=== PATIENT | female | born 1950 | race Caucasian/White ===

== ENCOUNTER 2017-11-17 02:46 | Observation (INO) | payer MEDICARE ==
[2017-11-17 03:24] LABS: #Eosinphils 0.3 thou/uL (0.0-0.7); #Lymphocytes 2.6 thou/uL (1.20-3.40); #Monocytes 0.5 thou/uL (0.11-0.59); #Neutrophils 3.6 thou/uL (1.40-6.50); %Basophils 0.5 % (0.0-1.0); %Eosinophils 4.5 % (0.0-10.0); %Lymphocytes 36.8 % (21.0-51.0); %Monocytes 7.3 % (0.0-10.0); %Neutrophils 50.9 % (42.0-75.0); Hemoglobin 14.4 g/dL (12.0-16.0); Mean Corpuscular Hemoglobin 33.2 pg (27.0-31.0); Mean Corpuscular Volume 94.8 fl (81.0-99.0); Mean Platelet Volume 7.8 fL (7.4-10.4); Platelet Count 207 thou/uL (130-400); RBC Distribution Width 11.1 % (11.5-14.5); Red Blood Cell (RBC) Count 4.35 mill/uL (4.20-5.40); White Blood Cell (WBC) Count 7.1 thou/uL (4.8-10.8)
[2017-11-17 03:44] LABS: ALT (SGPT) 13 U/L (8-55); AST (SGOT) 15 U/L (5-34); Albumin 4.4 g/dL (3.4-4.8); Alkaline Phosphatase 71 U/L (40-150); Anion Gap 11 mmol/L (10-20); BUN (Urea Nitrogen) 25 mg/dL (9.8-20.1); Bilirubin, Total 0.4 mg/dL (0.2-1.2); Calc. Creatinine Clearance 0 mL/min (70-130); Calcium 9.3 mg/dL (7.8-10.44); Carbon Dioxide 24 mmol/L (23-31); Chloride 109 mmol/L (98-107); Estimated GFR-MDRD 87; Globulin 2.5 g/dL (2.4-3.5); Glucose 110 mg/dL (80-115); Potassium 3.4 mmol/L (3.5-5.1); Protein, Total 6.9 g/dL (6.0-8.3); Sodium 141 mmol/L (136-145)
[2017-11-17 03:46] LABS: CKMB 1.7 ng/mL (0-6.6); Troponin I Less than 0.010 ng/mL (< 0.028)
[2017-11-17] MEDS ORDERED: Ondansetron ODT 4 MG TAB SL PRN (05:46)
[2017-11-17] MEDS ORDERED: Acetaminophen 325 MG TAB PO PRN (05:46)
[2017-11-17] MEDS ORDERED: Ondansetron HCl/PF 4 MG/2 ML Vial IVP PRN (05:46)
[2017-11-17 06:02] VITALS: BMI 29.0
[2017-11-17 07:30] LABS: Troponin I Less than 0.010 ng/mL (< 0.028)
--- NOTE | 2017-11-17 07:44 | RAD ---
SINGLE VIEW OF THE CHEST: COMPARISON: None. HISTORY: Tachycardia and chest pain. FINDINGS: Single view of the chest shows a normal sized cardiomediastinal silhouette. There is no evidence of c onsolidation, mass, or pleural effusion. The bones are unremarkable. IMPRESSION: No evidence of acute cardiopulmonary disease. POS: [facility]
[2017-11-17 07:54] VITALS: BP 155/77; TEMP 98.3
[2017-11-17] MEDS ORDERED: Aspirin 325 mg Enteric Coated Tablet PO SCH (09:00)
[2017-11-17 10:07] LABS: Troponin I Less than 0.010 ng/mL (< 0.028)
--- NOTE | 2017-11-17 11:05 | SS ---
DATE OF ADMISSION: 11/17/2017 PRIMARY CARE PHYSICIAN: Dr. Maria Del Rosario Rose with [facility], [facility]. CHIEF COMPLAINT: Fast heartbeat. HISTORY OF PRESENT ILLNESS: This is a 67-year-old female who resides in [facility], who presented to [facility] Emergency Department complaining of rapid heartbeat. Th e patient states she noticed heartbeat, which woke her up at approximately 2:00 a.m., noting on her F itbit watch that her pulse was in the 120s. The patient states she was attempting to go to sleep whe n she noticed her heart rate racing, but denied any associated shortness of breath, jaw or left arm d iscomfort. The patient denied any specific chest pain and states she has no personal history of robbi nary artery disease or strong family history of coronary artery disease. The patient states she unde rwent cardiac scan within the last year which was negative. The patient admits that she remains acti ve, exercising on a regular basis and taking no chronic medications except nabumetone for arthritis s ymptoms and over the counter supplements for cartilage health as well as Krill oil supplement. The p atient admits to assisting her son with a recent move over the last week with increased caffeine inta ke and decreased water intake. The patient denies any history of thyroid disorder or atrial fibrilla tion. The patient states she had some associated nausea when she noticed her heart rate increasing, but no vomiting or diarrhea. The patient denied any specific cold symptoms, but felt flushed. In e emergency department, the patient underwent general evaluation with EKG showing sinus tachycardia w ith heart rates in the low 100s. Screening metabolic survey was essentially negative and troponins h ave been negative x2. The patient received aspirin 324 mg and was referred to the observation unit. PAST MEDICAL HISTORY: 1. Arthritis. 2. Dyslipidemia. PAST SURGICAL HISTORY: 1. Status post left wrist repair. 2. Status post cholecystectomy. 3. Status post tonsillectomy. CURRENT MEDICATIONS: Nabumetone 750 mg 1 tab p.o. daily p.r.n. ALLERGIES: No known drug allergies. FAMILY HISTORY: Parents lived to their low 100s, now . SOCIAL HISTORY: The patient is , accompanied by her in the hospital. Resides near [place], [place]. No current tobacco or illicit drug use. Occasional alcohol use. REVIEW OF SYSTEMS: The following complete review of systems was negative, unless otherwise mentioned in the HPI or below: Constitutional: Weight loss or gain, ability to conduct usual activities. Skin: Rash, itching. Eyes: Double vision, pain. ENT/Mouth: Nose bleeding, neck stiffness, pain, tenderness. Cardiovascular: Palpitations, dyspnea on exertion, orthopnea. Respiratory: Shortness of breath, wheezing, cough, hemoptysis, fever or night sweats. Gastrointestinal: Poor appetite, abdominal pain, heartburn, nausea, vomiting, constipation, or diarrhea. Genitourinary: Urgency, frequency, dysuria, nocturia. Musculoskeletal: Pain, swelling. Neurologic/Psychiatric: Anxiety, depression. Allergy/Immunologic: Skin rash, bleeding tendency. PHYSICAL EXAMINATION: VITAL SIGNS: Currently, blood pressure 155/77, pulse 89, respiratory rate 16, temperature 98.3 degre es Fahrenheit, O2 saturation 96% on room air. GENERAL APPEARANCE: This is a 67-year-old female, alert and oriented x3, pleasant, convers ant, in no acute distress. HEENT: Pupils are equal, round, and reactive to light and accommodation. Extraocular muscles are in tact. No scleral icterus, no conjunctival injection. Nares patent. OP is clear. Teeth in good rep air. NECK: Supple, no cervical adenopathy, no thyromegaly, no carotid bruits, no JVD appreciated. Cervic al spine with full active and passive range of motion. No meningeal signs appreciated. CHEST: Lungs are clear to auscultation bilaterally. CARDIOVASCULAR: S1 and S2 without noted murmur. ABDOMEN: Rounded, soft, nontender, nondistended. Bowel sounds are positive in all four quadrants. There is no hepatosplenomegaly, no abdominal bruits, no rebound or guarding appreciated. EXTREMITIES: Warm and dry with good turgor. No clubbing, cyanosis or asymmetric edema appreciated. Pulses palpable distally at the dorsalis pedis, posterior tibial, and popliteal arteries bilaterally . Capillary refill less than 2 seconds. NEUROLOGIC: Cranial nerves II-XII are grossly intact. No focal or lateralizing signs appreciated. PERTINENT LABORATORY AND X-RAY FINDINGS: Sodium 141, potassium 3.4, chloride 109, CO2 of 24, BUN 25, creatinine 0.68 with estimated GFR of 87, glucose 110, calcium 9.3. LFTs within normal limits. Tro ponin I negative x3. Albumin 4.4. TSH 2.36. CBC within normal limits. Portable chest x-ray dated 11/17/2017 showed no acute cardiopulmonary process. EKG dated 11/17/2017 by my interpretation shows a sinus tachycardia with heart rates in the low 100s. Normal R-wave progression noted in the precord ial leads. Left axis deviation. No acute ST-T wave changes appreciated. ASSESSMENT AND PLAN: 1. Sinus tachycardia, etiology unclear with extensive differential. Suspect related to mild dehydra tion in conjunction with increased caffeine intake. Metabolic workup was essentially unrevealing. C urrent recommendations are for increased fluid intake and limit exposure to nabumetone. No current e vidence to suggest underlying ischemic episode. 2. Elevated blood pressure. Suspect stress reaction. Recommend outpatient monitoring. 3. Osteoarthritis. Symptomatic and supportive measures. Limit nabumetone. Continue routine exerci se program. 4. Code status is FULL. DISPOSITION: Discharged home with follow up with primary care provider in [place], [place] within 7 days.
== END 2017-11-17 10:52 | disposition home or self-care (01) ==
LOC: ERS 02:46 → 2SW 04:10
PROVIDERS: ADMIT Internal Medicine; ATTEND Internal Medicine
DX: R00.0 Tachycardia, unspecified (principal); R03.0 Elevated blood-pressure reading, without diagnosis of hypertension; E78.5 Hyperlipidemia, unspecified; M19.90 Unspecified osteoarthritis, unspecified site; Z88.5 Allergy status to narcotic agent; Z90.49 Acquired absence of other specified parts of digestive tract; Z98.890 Other specified postprocedural states
CPT/HCPCS: 36415; 71045; 80053; 82553; 84443; 84484; 85025; 93005; A4216

== ENCOUNTER 2018-03-11 05:30 | Observation (INO) | payer MEDICARE ==
[2018-03-11 06:01] LABS: #Basophils 0.1 thou/uL (0.0-0.2); #Eosinphils 0.2 thou/uL (0.0-0.7); #Lymphocytes 1.8 thou/uL (1.20-3.40); #Monocytes 0.5 thou/uL (0.11-0.59); #Neutrophils 9.8 thou/uL (1.40-6.50); %Basophils 0.5 % (0.0-1.0); %Eosinophils 1.6 % (0.0-10.0); %Lymphocytes 14.4 % (21.0-51.0); %Monocytes 3.8 % (0.0-10.0); %Neutrophils 79.8 % (42.0-75.0); Hemoglobin 15.2 g/dL (12.0-16.0); Mean Corpuscular HGB CONC 35.4 g/dL (32.0-36.0); Mean Corpuscular Hemoglobin 32.9 pg (27.0-31.0); Mean Platelet Volume 7.4 fL (7.4-10.4); Platelet Count 225 thou/uL (130-400); RBC Distribution Width 11.2 % (11.5-14.5); Red Blood Cell (RBC) Count 4.62 mill/uL (4.20-5.40); White Blood Cell (WBC) Count 12.3 thou/uL (4.8-10.8)
[2018-03-11 06:22] LABS: CKMB 1.5 ng/mL (0-6.6); Troponin I Less than 0.010 ng/mL (< 0.028)
[2018-03-11 06:24] LABS: ALT (SGPT) 15 U/L (8-55); AST (SGOT) 18 U/L (5-34); Albumin 4.6 g/dL (3.4-4.8); Alkaline Phosphatase 72 U/L (40-150); Anion Gap 15 mmol/L (10-20); BUN (Urea Nitrogen) 18 mg/dL (9.8-20.1); Bilirubin, Total 1.4 mg/dL (0.2-1.2); CK (CPK) 64 U/L (29-168); Calc. Creatinine Clearance 0 mL/min (70-130); Calcium 9.2 mg/dL (7.8-10.44); Carbon Dioxide 19 mmol/L (23-31); Chloride 109 mmol/L (98-107); Estimated GFR-MDRD Greater than 90; Globulin 2.5 g/dL (2.4-3.5); Glucose 117 mg/dL (80-115); Potassium 3.3 mmol/L (3.5-5.1); Protein, Total 7.1 g/dL (6.0-8.3); Sodium 140 mmol/L (136-145)
[2018-03-11] MEDS ORDERED: Acetaminophen 325 MG TAB PO PRN ×3 (07:19→08:31)
[2018-03-11] MEDS ORDERED: Ondansetron ODT 4 MG TAB SL PRN (07:19)
[2018-03-11] MEDS ORDERED: Ondansetron HCl/PF 4 MG/2 ML Vial IVP PRN ×2 (07:19→08:31)
[2018-03-11] MEDS ORDERED: Nitroglycerin 2% Ointment 1 INCH/1 GM Packet ONE (07:38)
[2018-03-11] MEDS ORDERED: Loratadine 10 MG TAB PO PRN (08:31)
[2018-03-11] MEDS ORDERED: Diabetic Tussin 200 MG/10 ML UDCUP PO PRN (08:31)
[2018-03-11] MEDS ORDERED: Calcium Carbonate 500 MG ChewTAB PO PRN (08:31)
[2018-03-11] MEDS ORDERED: cloNIDine 0.1 MG TAB PO PRN (08:31)
[2018-03-11] MEDS ORDERED: Senokot 8.6 MG TAB PO PRN ×2 (08:31)
[2018-03-11] MEDS ORDERED: Benzonatate 100 MG CAP PO PRN (08:31)
[2018-03-11] MEDS ORDERED: hydrALAZINE 20 MG/ML VIAL SLOW IVP PRN (08:31)
[2018-03-11] MEDS ORDERED: Bisacodyl 5 MG TAB PO PRN ×2 (08:31)
[2018-03-11] MEDS ORDERED: Mag-Al 1200 mg/1200 mg/30 ML UDCUP PO PRN (08:31)
[2018-03-11] MEDS ORDERED: Nitroglycerin 0.4 MG TAB (25 Tab Bottle) SL PRN (08:31)
--- NOTE | 2018-03-11 09:55 | RAD ---
PORTABLE CHEST: Date: 03/11/18 HISTORY: Heart palpitations and chest pain. COMPARISON: 11/17/17. FINDINGS: Heart size is within normal limits for portable technique. Mediastinal structures are unremarkable. T he lungs are clear of infiltrates. IMPRESSION: No active intrathoracic disease. POS: [facility]
[2018-03-11 10:21] LABS: Troponin I Less than 0.010 ng/mL (< 0.028)
[2018-03-11] MEDS ORDERED: Nitroglycerin 2% Ointment 1 INCH/1 GM Packet TOP PRN (10:48)
[2018-03-11 10:59] VITALS: BMI 28.1
--- NOTE | 2018-03-11 12:49 | HP ---
DATE OF ADMISSION: 03/11/2018 PRIMARY CARE PHYSICIAN: Out of town in [place]. CHIEF COMPLAINT: Palpitations and sweating and chest tightness. HISTORY OF PRESENT ILLNESS: Ms. Troncoso is a very pleasant 67-year-old female with past medical his tory of osteoarthritis and paroxysmal hypertension, who presented to the emergency room with above-me ntioned complaints. History is mainly obtained by the patient herself and case has been discussed wi th admitting ER physician. Ms. Troncoso reports that she lives in [place] and travels locally to visit her son. They came h ere the day before yesterday. She has a history of palpitations and faster heart rate for which she was admitted to our facility in October. At that time, no arrhythmia was noticed and she was admitt ed after overnight observation. She has sought attention with her primary care physician in [facility] and was told to go follow up with the rn correctional, which she has not been able to do so. Last night while she was here at her son's house, she started to have symptoms again. Her symptoms m ainly consist of feeling palpitations and when she checked her heart rate on her Fitbit, it read as h igh as 100 teens. These episodes are associated with some chest discomfort and mild shortness of tru ath and sensation of flushing. She denies any significant chest pain or arm or jaw claudication. Sh e denies any recent illnesses. She may get a little bit dizzy with that, but is not sure. She denie s any prior history of any thyroid issues or hormonal imbalances. She is currently not on any signif icant medications except for over the counter multivitamins and a baby aspirin. In the emergency room upon presentation, her heart rate was 88, but her blood pressure was elevated t o 178/95. She reported that she always has had good blood pressure, but lately she has been noticing that her blood pressure would be high on occasions. Her doctor took her off of nabumetone that she has been taking for multiple years, thinking that might help with her blood pressure. In the emergency room, her workup consisted of a 12-lead EKG, which showed normal sinus rhythm at 87 beats per minute. She was given 325 mg of aspirin and half an inch of nitro paste transdermal. Her blood work was rather unremarkable. D-dimer was less than 0.27. Cardiac enzymes normal x2. She is now being admitted for further evaluation and risk stratification as her cardiac index is at least __ ___(00:00). She has never had any cardiac workup done in the past. PAST MEDICAL HISTORY: 1. Dyslipidemia. 2. Arthritis. PAST SURGICAL HISTORY: 1. Left wrist repair. 2. Cholecystectomy. 3. Tonsillectomy. CURRENT MEDICATIONS: Aspirin 81 mg daily, multivitamin daily, omega-3 fish oil daily. Vitamin D 100 0 units daily. ALLERGIES: CODEINE. SOCIAL HISTORY: She is and lives in [place] with her . No history of drug, tobac co or alcohol abuse. FAMILY HISTORY: No significant family history of premature coronary artery disease, stroke or cancer . Reviewed with the patient. REVIEW OF SYSTEMS: A 12-point review of systems was done and is negative except for those mentioned in the history and physical. Constitutional: Weight loss or gain, ability to conduct usual activities. Skin: Rash, itching. Eyes: Double vision, pain. ENT/Mouth: Nose bleeding, neck stiffness, pain, tenderness. Cardiovascular: Palpitations, dyspnea on exertion, orthopnea. Respiratory: Shortness of breath, wheezing, cough, hemoptysis, fever or night sweats. Gastrointestinal: Poor appetite, abdominal pain, heartburn, nausea, vomiting, constipation, or diarrhea. Genitourinary: Urgency, frequency, dysuria, nocturia. Musculoskeletal: Pain, swelling. Neurologic/Psychiatric: Anxiety, depression. Allergy/Immunologic: Skin rash, bleeding tendency. LABORATORY DATA: Her CBC shows WBCs of 12.3 with 79% neutrophils. D-dimer is less than 0.27. Serum chemistry show potassium of 3.3, chloride 109, bicarbonate 19, total bilirubin 1.4 with normal liver enzymes. CK-MB normal at 1.5, troponin less than 0.010 x2. Chest x-ray by my review has no evidenc e to suggest pleural effusion, edema or infiltrate. Twelve-lead EKG by my review shows normal sinus rhythm without any acute ST or T-wave changes. PHYSICAL EXAMINATION: VITAL SIGNS: Most recent include temperature 98.3, pulse of 85, respirations 18, saturating 98% on r oom air, blood pressure 125/74. GENERAL: No acute distress. Awake, alert, oriented x3, very pleasant. HEENT: Mucous membrane is moist and pink. No oropharyngeal exudate or erythema. Head is normocepha lic, atraumatic. Pupils equal, reactive to light and accommodation. Extraocular movement intact. NECK: Supple without any lymphadenopathy, JVD or bruit. CHEST: Clear to auscultation without any wheezing, rales or rhonchi. CARDIOVASCULAR: Rate and rhythm is regular without any murmur, rubs or gallops. ABDOMEN: Soft, nontender, nondistended, positive bowel sounds. EXTREMITIES: Free of any cyanosis, clubbing, or edema. NEUROLOGIC: Nonfocal. SKIN: Free of any rashes or bruises. Feels warm and dry to touch. IMPRESSION AND PLAN: 1. Palpitations and chest discomfort. It is unknown whether the patient has been having some paroxy smal arrhythmia or not. She has not had any risk stratification done in the past. We will go ahead and order a stress test for her as well as echocardiogram to rule out any valvular dysfunction. She will be monitored on telemetry unit. We will also rule out alternative causes of sinus tachycardia. We will check her TSH and 24-hour urine metanephrines and catecholamines to rule out hormonal issues like pheochromocytoma given her symptoms of paroxysmal hypertension, palpitations and flushing. Lik elihood of the latter is less at this time, however. Continue her daily dose of baby aspirin. 2. Dyslipidemia. The patient will follow up with outpatient clinic with a primary care physician. 3. Deep venous thrombosis and gastrointestinal prophylaxis. DISPOSITION: Ms. Troncoso is currently being admitted under observation status for further workup of palpitation and cardiac risk stratification. Further management will depend upon her clinical cours e.
[2018-03-11] MEDS: Enoxaparin Sodium 40 MG/0.4 ML SYRINGE SC SCH ×2 (14:32→15:20)
--- NOTE | 2018-03-11 14:50 | NM ---
MYOCARDIAL PERFUSION SCAN WITH SPECT IMAGING: HISTORY: Chest pain. TECHNIQUE/FINDINGS: Examination is performed using 30 mCi 99m-technetium sestamibi on the stress and 9.1 on the resting i mages. This shows a normal distribution of radiopharmaceutical. No signs of ischemia or scar. WALL MOTION: There is symmetric contractility to the ventricle. LEFT VENTRICULAR EJECTION FRACTION: The calculated left ventricular ejection fraction is 62%. IMPRESSION: Unremarkable myocardial perfusion scan. POS: [facility]
[2018-03-11] MEDS ORDERED: Potassium Chloride 20 MEQ TAB PO SCH (15:15)
[2018-03-11] MEDS ORDERED: ADENOSINE 60 MG/20 ML VIAL ONE (15:28)
[2018-03-11 16:54] LABS: Bilirubin Negative (Negative); Blood, Urine Negative (Negative); Clarity CLEAR (Clear); Glucose, Urine (Dipstick) Negative (Negative); Leukocyte Negative (Negative); Nitrite Negative (Negative); Protein, Urine (Dipstick) 30 mg/dL (Neg-Trace); Specific Gravity, Urine 1.023 (1.002-1.036); Urobilinogen 0.2 mg/dL (0.2-1.0); pH, Urine 6.5 (5.0-9.0)
[2018-03-11 16:57] LABS: Bacteria/HPF None Seen HPF (None Seen); Hyaline Casts/LPF 4-6 HYALINE CAST LPF (0-3 Hyaline); Pathc Cast-AUWi Flag 0.58 (0-2.49); RBC/HPF 0-3 HPF (0-3); Squamous Epithelial 0-3 HPF (0-3); WBC/HPF 0-3 HPF (0-3)
[2018-03-12 05:14] LABS: #Eosinphils 0.3 thou/uL (0.0-0.7); #Lymphocytes 1.8 thou/uL (1.20-3.40); #Monocytes 0.5 thou/uL (0.11-0.59); #Neutrophils 4.3 thou/uL (1.40-6.50); %Basophils 0.5 % (0.0-1.0); %Eosinophils 3.8 % (0.0-10.0); %Lymphocytes 25.7 % (21.0-51.0); %Monocytes 7.1 % (0.0-10.0); %Neutrophils 62.9 % (42.0-75.0); Mean Corpuscular HGB CONC 33.8 g/dL (32.0-36.0); Mean Corpuscular Hemoglobin 31.5 pg (27.0-31.0); Mean Corpuscular Volume 93.2 fl (81.0-99.0); Mean Platelet Volume 7.5 fL (7.4-10.4); Platelet Count 210 thou/uL (130-400); RBC Distribution Width 11.2 % (11.5-14.5); Red Blood Cell (RBC) Count 4.44 mill/uL (4.20-5.40); White Blood Cell (WBC) Count 6.9 thou/uL (4.8-10.8)
[2018-03-12 06:08] LABS: Anion Gap 14 mmol/L (10-20); BUN (Urea Nitrogen) 15 mg/dL (9.8-20.1); Calc. Creatinine Clearance 97 mL/min (70-130); Carbon Dioxide 21 mmol/L (23-31); Chloride 109 mmol/L (98-107); Estimated GFR-MDRD 85; Glucose 143 mg/dL (80-115); Potassium 3.6 mmol/L (3.5-5.1); Sodium 140 mmol/L (136-145)
[2018-03-12] MEDS ORDERED: Multivitamin W/ Minerals 1 TAB PO SCH (09:00)
[2018-03-12] MEDS ORDERED: Lisinopril 5 MG TAB PO SCH (09:00)
[2018-03-12] MEDS ORDERED: Non-Formulary Item 1 EACH (Glucosam/Chondr-Msm1/D3/C/Mang [Glucosamine Chondroitin Comple PO SCH (09:00)
[2018-03-12] MEDS ORDERED: Fish Oil 1,000 MG CAP PO SCH (09:00)
[2018-03-12] MEDS: Enoxaparin Sodium 40 MG/0.4 ML SYRINGE SC SCH (09:31)
[2018-03-12 16:10] VITALS: BP 155/87; TEMP 98.4
--- NOTE | 2018-03-13 01:56 | DIS ---
DATE OF ADMISSION: 03/11/2018 DATE OF DISCHARGE: 03/12/2018 CONDITION AT THE TIME OF DISCHARGE: Stable and improved. DISCHARGE DIAGNOSES: 1. Palpitations and sinus tachycardia. 2. Hypokalemia, resolved. 3. Moderate mitral regurgitation. 4. Diastolic cardiac dysfunction. CONSULTATIONS: Inhouse none. PROCEDURES DONE IN THE HOSPITAL: 1. Nuclear medicine stress test, which shows no evidence of ischemia or scar. It preserved ejection fraction. 2. Transthoracic echocardiogram, which shows moderate mitral regurgitation and diastolic dysfunction . EF estimated at 50%-55%. 3. A 24-hour urine collection for metanephrines and catecholamines. HOSPITAL COURSE: Ms. Troncoso is a very pleasant 67-year-old female without any significant past med ical history, who presented to the ER with complaints of palpitations and some chest tightness. The patient has been having these episodes more and more frequently where her heart rate would go as high as 100 teens. Upon presentation, she was hemodynamically stable and her EKG showed normal sinus rhy thm. She had mild leukocytosis and potassium was slightly low at 3.3. D-dimer was negative. Cardia c enzymes were unremarkable. Chest x-ray was unremarkable. She was admitted in the observation [facility] for further workup and risk stratification for cardiac disease. Please see admission history and physical for further details. HOSPITAL COURSE: The patient remained asymptomatic throughout the hospitalization. She did not have any arrhythmias on the heart monitor. Stress test and echo were done with results mentioned above. Thyroid hormone levels were checked, which was normal. A 24-hour urine metanephrine and catecholami ne collection was done given her symptoms of flushing, hypertension, tachycardia, and chest tightness . The results are pending. The patient is instructed to call me in 2-3 days with the results. The patient's primary care physician is out of town. She was instructed to follow up with decal applier for possible Holter monitor or event monitor as an outpatient. She has already made an appointment with her cancer CT decal applier and will be seen in 4 or 5 days. Her cardiac enzymes were trended and were negative. Sodium was replaced and was within normal limit this morning. She was seen and examined prior to discharge. All questions were answered and discharge plan was dis cussed with the patient and her who verbalized understanding. PHYSICAL EXAMINATION: This morning, VITAL SIGNS: Temperature 97.7, pulse of 81, respirations 12, saturating 94% on room air, blood press ure 145/83. She was started on lisinopril 5 mg p.o. b.i.d. for consistently high blood pressure in t he systolic 145-166 and diastolic 70-83. General: No acute distress. Awake, alert, oriented. CHEST: Clear to auscultation without any wheezing, rales, or rhonchi. HEART: Rate and rhythm is regular without any murmur, rubs, or gallops. The patient is instructed to follow with primary care physician and Cardiology at the first available opportunity.
[2018-03-13 12:39] LABS: Reference Lab Name LABCORP
[2018-03-15 13:18] LABS: Metanephrine,Ur 73 ug/L (Undefined); Metanephrines Total-24H 164 ug/24 hr (45-290); Normetanephrine,Ur 148 ug/L (Undefined); Normetanephrines-24H U 333 ug/24 hr (82-500)
== END 2018-03-12 17:08 | disposition home or self-care (01) ==
LOC: ERS 05:30 → 2SW 08:30
PROVIDERS: ADMIT Internal Medicine; ATTEND Internal Medicine
DX: R00.2 Palpitations (principal); R00.0 Tachycardia, unspecified; E87.6 Hypokalemia; I34.0 Nonrheumatic mitral (valve) insufficiency; I51.89 Other ill-defined heart diseases; E78.5 Hyperlipidemia, unspecified; M19.90 Unspecified osteoarthritis, unspecified site; Z79.82 Long term (current) use of aspirin; Z79.52 Long term (current) use of systemic steroids; Z79.899 Other long term (current) drug therapy; Z88.5 Allergy status to narcotic agent
CPT/HCPCS: 71045; 78452; 80048; 82384; 82550; 82553; 83835; 84484 ×2; 85025; 85379; 93005; 93017; 93306; 97139; 99285; A9500; G0378; 36415; 80053; 81003; 81015; 82570; 84443; 96361; 96366; 96372; A4216; J0153; J1650